=== PATIENT | male | born 1970 | race Caucasian/White ===

== ENCOUNTER 2017-03-01 08:44 | Day surgery (SDC) | payer OTHER ==
[2017-03-01] MEDS: NS 1,000 ML IV (09:00)
[2017-03-01] MEDS ORDERED: LIDOCAINE 2% INJ 100 MG/5 ML SDV (FOR ANES.) As Ordered (10:50)
[2017-03-01] MEDS ORDERED: PROPOFOL 200 MG/20 ML VIAL As Ordered ×2 (10:50→10:55)
== END 2017-03-01 12:05 | disposition home or self-care (01) ==
LOC: M OPP 08:44
DX: K64.8 Other hemorrhoids (principal); D12.0 Benign neoplasm of cecum; D12.2 Benign neoplasm of ascending colon; K52.9 Noninfective gastroenteritis and colitis, unspecified; K92.1 Melena; I10 Essential (primary) hypertension; K21.9 Gastro-esophageal reflux disease without esophagitis; M54.2 Cervicalgia; R06.83 Snoring; E78.00 Pure hypercholesterolemia, unspecified; K59.00 Constipation, unspecified; Z79.891 Long term (current) use of opiate analgesic; Z79.899 Other long term (current) drug therapy; Z88.5 Allergy status to narcotic agent; Z91.018 Allergy to other foods; Z87.448 Personal history of other diseases of urinary system; Z87.19 Personal history of other diseases of the digestive system; Z80.0 Family history of malignant neoplasm of digestive organs; Z83.79 Family history of other diseases of the digestive system
CPT/HCPCS: 45380

== ENCOUNTER → 2017-04-07 | Outpatient (CLI) | payer OTHER ==
[2017-04-07 11:29] LABS: PLATELET COUNT, AUTOMATED 372 10^3/uL (150-450)
[2017-04-07 12:04] LABS: INR 1.03; PROTHROMBIN TIME 13.6 SECONDS (12.4-14.5)
[2017-04-07 12:21] LABS: COLLAGEN EPINEPHRINE 97 SECONDS (74-162)
== END ==
LOC: M LAB 10:19
DX: M79.604 Pain in right leg (principal)
CPT/HCPCS: 93971